=== PATIENT | female | born 2000 | race Caucasian/White ===

== ENCOUNTER 2024-12-05 15:20 | Outpatient (CLI) | payer OTHER, SELFPAY ==
--- NOTE | ~2024-12-05 | US_ITS ---
EXAMINATION: US OB <= 14 weeks fetus DATE: 12/05/2024 20:05 CDT INDICATION: Dating COMPARISON: 04/12/2024 TECHNIQUE: Real-time transabdominal obstetric ultrasound. FINDINGS: Last menstrual period is given as 09/19/2024 1 para 0 Estimated date of delivery by last menstrual period is 06/26/2025 The uterus measures 11.6 x 5.6 x 6.5 cm. A gestational sac is identified within the uterus. A pole is identified, with a crown-rump length that measures 3.7 cm, corresponding to an approx imate gestational age of 10 weeks and 4 days. cardiac activity is identified at a rate of 178 bpm. Despite prolonged interrogation, neither ovary was visualized Estimated date of delivery by ultrasound is 06/29/2025 IMPRESSION: Single intrauterine gestation with an approximate gestational age of 10 weeks and 4 days, with cardiac activity identified. Reviewed, dictated and finalized at location A. IMPRESSION: Single intrauterine gestation with an approximate gestational age of 10 weeks a nd 4 days, with cardiac activity identified.
== END 2024-12-05 15:21 | disposition home or self-care (01) ==
PROVIDERS: PCP Nurse Practitioner; Visit Provider Nurse Practitioner
DX: O36.80X0 Pregnancy with inconclusive fetal viability, not applicable or unspecified (principal); Z3A.00 Weeks of gestation of pregnancy not specified
CPT/HCPCS: 76801

== ENCOUNTER 2025-01-29 15:15 | Outpatient (CLI) | payer OTHER, SELFPAY ==
--- NOTE | ~2025-01-29 | US_ITS ---
EXAMINATION: US OB /maternal detail DATE: 01/29/2025 16:03 INDICATION: survey TECHNIQUE: Multiple obstetric sonographic images performed. FINDINGS: Comparison to ultrasound dated 12/05/2024 There is a single living fetus in vertex presentation. The placenta is anterior without placenta pre via. Placental margin to the cervix is 7.2 cm. Cervical length 3 cm. Amniotic fluid volume is subject ively normal. cardiac activity and movement is noted with a heart rate of 164 beats per minute. The following anatomy was identified as normal: 4 chamber heart 3 vessel cord cord insertion kidneys urinary bladder stomach spine diaphragm ventricles The cerebellum, nuchal fold and upper lip are not well visualized. Ventricular outflow tracts not vis ualized. Recommend follow-up survey for more complete assessment of these structures. The following biometric data were obtained: BPD: 40mm corresponds to gestational age 18 weeks 1 days. Head circumference: 152 mm corresponds to gestational age 18 weeks 2 days. Abdominal circumference: 128 mm corresponds to gestational age 18 weeks 3 days. Femur length: 25 mm corresponds to gestational age 17 weeks 4 days. Head circumference to abdominal circumference ratio: 1.19 (normal range for expected gestational age is 1.08-1.27). Estimated weight: 220 grams +/- 33 grams using Hadlock method, 22.4%. IMPRESSION: 1: Single living intrauterine with an estimated gestational age of 18weeks 3days by initial ultrasound measurements, with an EDC of 06/29/2025 in vertex presentation. 2. survey limited for evaluation of ventricular outflow tracts, cerebellum, cisterna magna, nu chal fold and upper lip. The remainder of the survey is unremarkable. Recommend follow-up survey for complete assessment of the above-mentioned structures. Reviewed, dictated and finalized at location A. IMPRESSION: 1: Single living intrauterine with an estimated gestational age of 18 weeks 3days by initial ultrasound measurements, with an EDC of 06/29/2025 in ve rtex presentation. 2. survey limited for evaluation of ventricular outflow tracts, cerebell um, cisterna magna, nuchal fold and upper lip. The remainder of the survey is u nremarkable. Recommend follow-up survey for complete assessment of the above-me ntioned structures.
== END 2025-01-29 15:16 | disposition home or self-care (01) ==
PROVIDERS: PCP Obstetrics & Gynecology Gynecology; Visit Provider Obstetrics & Gynecology Gynecology
DX: Z36.9 Encounter for antenatal screening, unspecified (principal); Z3A.18 18 weeks gestation of pregnancy
CPT/HCPCS: 76805

== ENCOUNTER 2025-02-26 12:40 | Outpatient (CLI) | payer OTHER, SELFPAY ==
--- NOTE | ~2025-02-26 | US_ITS ---
EXAMINATION: US OB follow up DATE: 02/26/2025 16:25 CDT INDICATION: Follow-up anatomy scan TECHNIQUE: Real-time transabdominal obstetric ultrasound. COMPARISON: 01/29/2025 FINDINGS: There is a single intrauterine gestation in vertex presentation. The placenta is anterior. No images of the cervix were submitted. cardiac activity and movement is noted with a heart rate of 155 beats per minute. Anatomic parameters are as follows choroid plexi are visualized, and unremarkable. Lateral ventricles are visualized and are unremarkable. The falx is visualized. The cerebellum is visualized measuring 22.3 mm, and is sonographically unremarkable. The cisterna magna measures 3.5 mm in anterior to posterior dimension (normal measurement is 2 to 10 mm). The nuchal fold measures 4.6 mm (greater than 6 mm is considered abnormal). Cine of the four-chamber heart is visualized and is anatomic. Both the right and left ventricular outflow tracts are identified on cine view and are unremarkable. The upper lip and nose are continuous on the submitted cine images. IMPRESSION: Single intrauterine gestation with an approximate gestational age of 22weeks and 3 days. Remainder of the requested anatomy scan was performed and is within normal limits. Reviewed, dictated and finalized at location A. IMPRESSION: Single intrauterine gestation with an approximate gestational age of 22weeks an d 3 days. Remainder of the requested anatomy scan was performed and is within normal limi ts.
== END 2025-02-26 12:41 | disposition home or self-care (01) ==
LOC: MICIMG 12:43
PROVIDERS: PCP Obstetrics & Gynecology Gynecology; Visit Provider Obstetrics & Gynecology Gynecology
DX: Z36.2 Encounter for other antenatal screening follow-up (principal)
CPT/HCPCS: 76816

== ENCOUNTER 2025-03-02 16:32 | Emergency (ER) | payer OTHER, SELFPAY ==
--- NOTE | 2025-03-02 16:40 | ED.FEMALEGU ---
HPI - Female Genitourinary General Chief complaint: Urogenital-Female Stated complaint: Urinary Irritation Time Seen by Provider: 03/02/25 16:48 Source: patient and RN notes reviewed Mode of arrival: ambulatory Limitations: no limitations History of Present Illness HPI Narrative: 25-year-old female who is , due in June, presents with concern with concern for urine frequency, urgency, low back pain, dysuria. Reports symptoms started 1-2 days ago. She denies fever, body aches, chills, sweats, nausea, vomiting. Reports she had a UTI beginning of her as well. MD elicited complaint: UTI Related Data Home Medications ?Medication ?Instructions ?Recorded ?Confirmed ?Last Taken ?Type [id number] 3 fatty no.1 PO 03/02/25 Unknown History ergocalciferol (vitamin D2) 1,250 03/02/25 Unknown History mcg (50,000 unit) capsule Allergies Allergy/AdvReac Type Severity Reaction Status Date / Time No Known Allergies Allergy Verified 03/02/25 16:42 Review of Systems Review of Systems: CONSTITUTIONAL: Denies malaise, chills, sweats, or fever. CARDIOVASCULAR: Denies chest pain, palpitations, or edema. RESPIRATORY: Denies cough or dyspnea. GASTROINTESTINAL: Denies abdominal pain, nausea, vomiting, diarrhea GENITOURINARY: Reports dysuria, frequency, urgency. Denies flank pain or hematuria. SKIN: Denies rash or itching. MUSCULOSKELETAL: Reports left back pain. Denies myalgia. All systems reviewed & are unremarkable except as noted in HPI and below PMFSH Comments At time of signature, agree with nursing past medical, surgical, social and family history. There is no relevant family history pertinent to the presenting complaint Exam Narrative: GENERAL: Well-appearing, well-nourished, and in no acute distress. HEAD: Normocephalic. EYES: PERRLA, conjunctivae clear. NECK: Supple. No lymphadenopathy CHEST: Clear to auscultation. No respiratory distress. HEART: Regular rate and rhythm. ABDOMEN: No CVA tenderness SKIN: Warm, dry, no rash. NEURO: Alert and oriented x3. PSYCH: Normal mood and affect Course Course Emergency Course: Patient is aware of diagnosis, understands and agrees to treatment plan. Anticipatory guidance given. Patient agrees to follow-up as directed and is aware of reasons to seek care at the emergency department. Portions of this record may have been created with voice recognition software Level of Care: Express Care Visit Vital Signs Vital signs: Reviewed. MDM - Female Genitourinary MDM Narrative Medical decision making narrative: Exam findings and UA show no acute concerns or changes; patient is non-toxic appearing and is in no distress. Patient is appropriate for outpatient treatment and follow-up. Differential Diagnosis Differential diagnosis: Likely urinary tract infection and cystitis Critical Care Time Critical Care Time Critical Care Time: No Discharge Plan Discharge Clinical Impression: Urinary tract infection Patient Disposition: Home Condition: Stable Instructions: Antibiotic Form, Urinary Tract Infection in (ED) Additional Instructions: We will send a urine culture to the lab; if the culture identifies an organism that the prescribed antibiotic will not treat, you will receive a phone call from an urgent care staff member and an appropriate antibiotic will be prescribed. -Your symptoms should begin to improve within a day of starting antibiotics. But you should finish all the antibiotic pills you get. Otherwise your infection might come back. -Also recommend: increase water intake. Tylenol as needed for pain or fever -Follow-up with your primary care provider for urine recheck or seek ER visit if condition worsens with high fever, nausea, vomiting and severe back pain. Patient Language: Bangladeshi Prescriptions: New cephalexin 500 mg capsule 500 mg PO BID 7 Days Qty: 14 0RF No Action ergocalciferol (vitamin D2) 1,250 mcg (50,000 unit) capsule [id number] 3 fatty no.1 [Pre-Diana Multivitamins/Minerals] PO Follow-up/Referrals: Jamaica Scott MD [Primary Care Provider, PLASTICS SEASONER OPERATOR] Time of Disposition: 16:56
[2025-03-02 16:44] VITALS: BP 125/72; PULSE 93; RESP 18; TEMP 36.4; O2SAT 100
[2025-03-02 16:52] LABS: EDUAAPPEAR Clear; EDUABILI Negative (Negative); EDUABLOOD Trace (Negative); EDUACOLOR1 Yellow; EDUAGLUCOSE Negative (Negative); EDUAKETONE Negative (Negative); EDUALEUKO 1+ (Negative); EDUANITRATE Negative (Negative); EDUAPH 6.0; EDUAPROTEIN Trace (Negative); EDUASPGRAVITY 1.025; EDUAUROBILI 1.0
== END 2025-03-02 16:58 | disposition home or self-care (01) ==
PROVIDERS: Emergency Provider Nurse Practitioner; PCP Obstetrics & Gynecology Gynecology
DX: N39.0 Urinary tract infection, site not specified (principal)
CPT/HCPCS: 81003; 87086; 99203; G0463

== ENCOUNTER 2025-05-28 10:02 | Outpatient (RCR) | payer OTHER, SELFPAY ==
--- NOTE | 2025-05-28 10:35 | PC.NURSE ---
on the unit. Reviewed tracing and BP reported. Order received for PIH workup.
[2025-05-28 10:52] LABS: Hematocrit 39.8 % (37.0-47.0); Hemoglobin 13.0 g/dL (12.0-15.0); Immature Granulocyte Percent A 0.5 % (0-0.5); Lymphocytes Absolute Auto 1.50 K/mm3 (0.9-3.2); Mean Corpuscular HGB Conc 32.7 g/dl (32-36); Mean Corpuscular Hemoglobin 28.8 pg (26-34); Mean Corpuscular Volume 88.1 fl (80-100); Nucleated Red Blood Cells Absolute Auto 0.000 K/mm3 (0.0-0.012); Nucleated Red Blood Cells Perc 0.0 % (0.0-0.2); Platelet Count Result 197 k/mm3 (150-375); Red Blood Count 4.52 M/mm3 (4.2-5.4); White Blood Count 11.7 K/mm3 (4.5-10.0)
[2025-05-28 11:11] LABS: Alanine Aminotransferase 16 U/L (6-35); Albumin Level 3.5 g/dL (3.5-5.1); Alkaline Phosphatase 186 U/L (38-126); Anion Gap 7 mmol/L (4-12); Aspartate Amino Transferase 19 U/L (14-36); Bilirubin,Total 0.3 mg/dL (0.2-1.3); Blood Urea Nitrogen 4 mg/dL (7-17); Calcium 8.8 mg/dL (8.4-10.2); Carbon Dioxide 21 mmol/L (22-30); Chloride 106 mmol/L (98-107); Estimated Glomerular Filt Rate > 60; Glucose 111 mg/dL (65-110); Potassium 3.8 mmol/L (3.4-5.0); Sodium 134 mmol/L (137-145); Total Protein 6.7 g/dL (6.3-8.2); Uric Acid 4.0 mg/dL (2.5-7.5)
[2025-05-28 11:27] LABS: Total Protein Urine Random 13 mg/dL; Ur Ttl Prot Creatinine Ratio 0.28 mg/mg (0-0.20)
[2025-05-28 11:31] LABS: Add Urine Microscopic? YES; Appearance Urine Clear (Clear); Glucose Urine UA Negative (Negative); Leukocyte Esterase Ur 2+ LEU/UL (Negative); Need Manual Microscopic Reviewed; Nitrate Urine Negative (Negative); Non Pathogenic Casts 0-2; Specific Grav Ur 1.010 (1.001-1.035)
[2025-05-28 11:47] VITALS: BP 142/97
== END 2025-06-30 11:41 | disposition other institution (70) ==
LOC: ANHOBOP 10:02
PROVIDERS: Visit Provider Obstetrics & Gynecology Gynecology
DX: O36.8330 Maternal care for abnormalities of the fetal heart rate or rhythm, third trimester, not applicable or unspecified (principal); Z3A.38 38 weeks gestation of pregnancy
CPT/HCPCS: 36415; 59025; 80053; 81001; 82570; 84156; 84550; 85025; 87086

== ENCOUNTER 2025-05-31 18:55 | Outpatient (CLI) | payer OTHER, SELFPAY ==
[2025-05-31] VITALS (9 sets, daily range): BP systolic 121–132; BP diastolic 76–87; PULSE 99–113; O2SAT 97–100
== END 2025-05-31 19:54 | disposition home or self-care (01) ==
LOC: ANHOBOP 19:00 → ANHLDR 06-05 13:09
PROVIDERS: Visit Provider Obstetrics & Gynecology Gynecology
DX: O41.8X90 Other specified disorders of amniotic fluid and membranes, unspecified trimester, not applicable or unspecified (principal); Z3A.00 Weeks of gestation of pregnancy not specified
CPT/HCPCS: 59025; 84112; 99199

== ENCOUNTER 2025-06-10 20:44 | Outpatient (CLI) | payer OTHER, SELFPAY ==
[2025-06-10 20:58] VITALS: BP 140/94; PULSE 92
[2025-06-10 21:15] VITALS: BP 140/101; PULSE 92
[2025-06-10 21:31] VITALS: BP 137/81; PULSE 90
== END 2025-06-10 21:38 | disposition home or self-care (01) ==
LOC: ANHOBOP 20:48 → ANHOBPP 20:49
PROVIDERS: Visit Provider Obstetrics & Gynecology Gynecology
DX: O36.8190 Decreased fetal movements, unspecified trimester, not applicable or unspecified (principal)
CPT/HCPCS: 99199

== ENCOUNTER 2025-06-11 12:31 | Observation (INO) | payer OTHER, SELFPAY ==
--- NOTE | 2025-06-11 12:45 | OBADM ---
This patient, Dayo White, admitted to the OB room Labor/Delivery/Recovery 107 for observation. Patient/family oriented to hospital policies and general routines including ID bracelet, bed and alarms, visiting hours, pain management, procedures, bathroom and other care routines, personal items, smoking policy, room service/diet, and visiting hours. Patient/Family are encouraged to report perceived risks to care and to ask questions if they do not understand what they are told or what they should do.
--- NOTE | 2025-06-25 08:02 | PM.OBTRLD ---
OB - Triage/Final Diagnosis Visit Information Reason for evaluation: threatened labor Comments/Additional reasons for admission: I have assessed the risk for this patient, Dayo White, and determined that she would benefit from observation care.
== END 2025-06-11 17:00 | disposition home or self-care (01) ==
PROVIDERS: Admitting Provider Obstetrics & Gynecology Gynecology; Visit Provider Obstetrics & Gynecology Gynecology
DX: O47.1 False labor at or after 37 completed weeks of gestation (principal); Z3A.37 37 weeks gestation of pregnancy
CPT/HCPCS: G0378; G0379

== ENCOUNTER 2025-06-13 03:27 | Inpatient (IN) | payer OTHER, SELFPAY ==
[2025-06-13] VITALS (43 sets, daily range): BP systolic 118–141; BP diastolic 59–93; PULSE 89–136; RESP 16; TEMP 36.6–37.2; O2SAT 86–100; BMI 34.7
[2025-06-13] MEDS: LACTATED RINGERS 1,000 ML 125 ML IV CONT (03:47)
[2025-06-13 04:05] LABS: Hematocrit 41.5 % (37.0-47.0); Hemoglobin 13.8 g/dL (12.0-15.0); Immature Granulocyte Percent A 1.1 % (0-0.5); Lymphocytes Absolute Auto 2.54 K/mm3 (0.9-3.2); Mean Corpuscular HGB Conc 33.3 g/dl (32-36); Mean Corpuscular Hemoglobin 29.1 pg (26-34); Mean Corpuscular Volume 87.4 fl (80-100); Nucleated Red Blood Cells Absolute Auto 0.000 K/mm3 (0.0-0.012); Nucleated Red Blood Cells Perc 0.0 % (0.0-0.2); Platelet Count Result 308 k/mm3 (150-375); Red Blood Count 4.75 M/mm3 (4.2-5.4); White Blood Count 21.5 K/mm3 (4.5-10.0)
[2025-06-13] MEDS: OXYTOCIN 30 UNITS/NS 500 ML 30 UNITS/500 ML BAG 999 UNITS IV CONT (04:21)
--- NOTE | 2025-06-13 04:31 | WPDOBADMIT ---
Obstetrics - Admit Note Admission Note: record reviewed. No pertinent additions to the history and/or any subsequent changes in the physical findings that are not consistent with the expected course of the were found. Additions to the history and/or subsequent changes in the physical findings follow. None.
--- NOTE | 2025-06-13 04:31 | PM.OBPRVD ---
OB - Vaginal Delivery Note Procedure Delivery date: 06/13/25 Induction method: None Delivery monitor: External FHT and External Uterine Route of delivery: Episiotomy description: None Laceration Description: Perineal - 2nd Degree Delivery repair: vicryl (3-0) Specimen: No Quantitative Blood Loss (ml): 150 Anesthesia type: Local Disposition: Floor Complications: No immediate complications Baby Date of : 06/13/25 Gestational Age by Date: 38 gender: Female Weight (pounds): 6 Weight (ounces): 9 presentation: vertex position: Right Occiput Anterior Placenta delivery description: Spontaneous Cord Vessel Description: 3 Vessels and Nuchal Cord score one minute: 8 score five minutes: 9
--- NOTE | 2025-06-13 04:33 | PM.OBDSVD ---
DS: Admitting Diagnosis Discharge Date 06/15/25 Admitting Diagnosis labor at 38 weeks DS: Discharge Diagnosis Discharge Diagnosis (1) (normal spontaneous vaginal delivery): Code(s): O80 - Encounter for full-term uncomplicated delivery Status: Acute OB - DS: Summary OB Procedures : Ultrasound OB Procedures Intrapartum: Spontaneous Vag Delivery OB Procedures: : None Peripartum Data Infant Delivery Method: Natural Vaginal Laceration Description: Perineal - 2nd Degree Episiotomy description: None complications: none Status at Discharge Functional status at discharge: independent ambulation Overall status at discharge: patient is progressing back to baseline Time Spent with Patient Time attestation: Total time spent providing and/or coordinating discharge services: DS: Data Data Completed and Pending Labs on day of discharge: Labs from last 24 hours 06/13/25 04:00 WBC Pending RBC Pending Hgb Pending Hct Pending MCV Pending MCH Pending MCHC Pending RDW Pending Plt Count Pending MPV Pending Immature Gran % (Auto) Pending Neut % (Auto) Pending Lymph % (Auto) Pending [place] % (Auto) Pending Eos % (Auto) Pending Baso % (Auto) Pending Lymph # (Auto) Pending [place] # (Auto) Pending Eos # (Auto) Pending Baso # (Auto) Pending Abs Immat Gran (auto) Pending Absolute Neuts (auto) Pending Absolute Nucleated RBC Pending Nucleated RBC % Pending Blood Type Pending Antibody Screen Pending Discharge Plan Discharge Attending physician on discharge: Jamaica Scott Discharging Clinician: Jamaica Scott Anticipated Discharge Date/Time: 06/15/25 04:33 Patient Disposition: Home Activity: may shower and pelvic rest Diet: regular Patient Instructions: Antibiotic Form Patient Language: Russian Stand Alone Forms: General Discharge Information Follow-up/Referrals: Jamaica Scott MD [Physician, VICE PRESIDENT OF CONSULTING SERVICES] - 6 Weeks Discharge Medications: Continued ergocalciferol (vitamin D2) 1,250 mcg (50,000 unit) capsule 1,250 mcg PO WEEKLY Rx Instructions: typically takes on Fridays [id number] 3 fatty no.1 [Pre-Diana Multivitamins/Minerals] 1 cap PO DAILY Date of admission: 06/13/25 03:27 Primary Care Provider: PHYSICIAN,ELASTIC CUTTER Admitting Provider: Jamaica Scott Attending physician on admission: Jamaica Scott Condition: Stable
[2025-06-13 04:48] LABS: Syphilis IgG/IgM Antibody Non-Reactive (Nonreactive)
[2025-06-13] MEDS: OXYTOCIN 30 UNITS/NS 500 ML 30 UNITS/500 ML BAG 125 UNITS IV CONT (04:51)
[2025-06-13] MEDS: IBUPROFEN 600 MG TABLET PO ×2 (05:51→13:20)
[2025-06-13] MEDS: BENZOCAINE 20% AER SPR (*SP) 56 GM CAN 1 SPRAY TOPICAL (07:08)
[2025-06-13] MEDS: WITCH HAZEL 40 PADS 1 PAD TOPICAL (07:08)
--- NOTE | 2025-06-13 07:18 | OBPPTRN ---
Patient transferred to post room #286 via wheelchair. Support person present. Oriented to unit, room, information board, rooming in, admission packet and security measures. Patient verbalizes understanding.
--- NOTE | 2025-06-13 16:12 | PC.NURSE ---
0740 Consulted with patient to assess needs related to . Discussed with mother her successes, concerns and any questions she has. Per mother infant latched earlier this morning using the nipple shield on her left breast, that nipple is slightly flat, her right nipple is able to mary ellen with stimulation, will try and see if will latch without the shield. We reviewed working with the , supporting breast, protecting her nipples with an optimal deep latch, good positioning, and good hand washing. Encouraged understanding the benefits of skin to skin, responding to feeding cues, frequencies of feeding 8-12 times in 24 hours (approximately 2-3 hours), duration of feedings, milk production, intake/output feeding sheet and signs of adequate intake encouraging swallowing at the breast. Reviewed positioning and alignment, supporting breast, off-centered (asymmetrical latch) and leading with the chin with big, open, wide gape. Infant latched optimally to the [right] breast in [football] position without using the nipple shield. Education given to the mother of how to visualize the suckling (with good rocking jaw motion) swallows (dropping of the lower jaw) and how to listen for drinking at the breast (the ka sound). The was [able] to maintain latch without discomfort to mother for 10 minutes. Nipple care reviewed with optimal latch, good positioning and using clean hands when touching her breast. Resources used to facilitate learning were used from the [visual handouts/ tool/mom and baby guide]. Mother voiced understanding of the education shared, to call for assistance if the infant does not latch or if there is discomfort with . Reported to the Primary RN. 0923 Mother called out for assistance with positioning and latch. Infant was able to latch optimally to the [left] breast in [football] position using the nipple shield. Education given to the mother again of how to visualize the suckling (with good rocking jaw motion) swallows (dropping of the lower jaw) and how to listen for drinking at the breast (the ka sound). The infant was [able] to maintain latch without discomfort to mother. As for the nipple shield, we reviewed good handwashing, cleaning the nipple shield and the appropriate way to apply and use as a tool. Discussed with mom the nipple shield precautions, possible complications associated with the risks and benefits. Reviewed practicing with a nipple shield, then without and how to protect the milk supply and production. Mom and baby guide referred to as a resource for outpatient services, community resources and when to call a provider. Mom voiced understanding of the importance of hand expression, nipple stimulation and initiating a pumping schedule if infant continues to nurse with the shield. Reported to the Primary RN. [id number] Mother called out for assistance with positioning and latch. was able to latch optimally to the [right] breast in [football] position using the nipple shield. Education given to the mother again of how to visualize the suckling (with good rocking jaw motion) swallows (dropping of the lower jaw) and how to listen for drinking at the breast (the ka sound). The was [able] to maintain latch without discomfort to mother. Discussed now initiating a pumping schedule since the infant has continued to nurse with the nipple shield. Mother would like to use the hospital breast pump as her pump is at home. Mother is going to call out to have breast pump set up after is done feeding. 1600 Breast pump provided due to nipple shield use. Instructions given on cleaning, care, usage, that there should be no pain, pumping schedule for milk production, collection, and storage of human milk. Patient was assessed for correct placement, flange size, to pump for comfort and nipple stretching/stimulation for adequate milk production every 3 hours (8 times in 24 hours) 1-2 times at night. Parents are encouraged to record the pumping schedule on the feeding sheet.?Mother voiced understanding of the education shared along with mom/baby guide and the pump measurement, flange fit handout for additional resource information. Reported to the Primary RN.
[2025-06-13] MEDS: ACETAMINOPHEN 325 MG TABLET 650 MG PO (21:40)
[2025-06-14 04:58] LABS: Hematocrit 34.3 % (37.0-47.0); Hemoglobin 11.4 g/dL (12.0-15.0)
[2025-06-14 04:59] VITALS: BP 113/71; PULSE 85; RESP 16; TEMP 36.7; O2SAT 97
[2025-06-14 05:00] VITALS: PULSE 85; RESP 16; O2SAT 97
[2025-06-14 07:25] VITALS: BP 119/87; PULSE 86; RESP 16; TEMP 36.9; O2SAT 98
--- NOTE | 2025-06-14 07:48 | P.PNOB_ITS ---
OB - PN: Subj Subjective Date/time seen: 06/14/25 07:48 Patient comments: no complaints and pain well controlled baby status: doing well OB - PN: Obj Data Labs 06/14/25 04:24 Labs: Laboratory Results - last 24 hr 06/14/25 04:24 Hgb 11.4 L Hct 34.3 L OB - PN A/P Plan day: 1 Plan: routine care Time Spent With Patient Time: Total time spent is greater than 50% in coordination of care (as documented) at patient's floor/unit and/or counseling patient: Exam 2 : Bimanual exam- vagina & uterus: other (Uterus firm, nt @U)
[2025-06-14] MEDS: MULTIVIT/MIN/PREN/FOL AC/IRON TABLET 1 TAB PO (08:47)
[2025-06-14] MEDS: IBUPROFEN 600 MG TABLET PO ×2 (08:47→22:02)
[2025-06-14] MEDS: DOCUSATE SODIUM 100 MG CAPSULE PO ×2 (08:47→16:32)
--- NOTE | 2025-06-14 13:35 | PC.NURSE ---
[id number] CLC RN called to room to assist with feeding, infant was sleepy and had not had a feeding in almost 6 hours. We reviewed working with the and using the nipple shield, supporting her breast, good positioning, and good hand washing. Reviewed positioning and alignment, supporting breast, off-centered (asymmetrical latch) and leading with the chin with big, open, wide gape. Infant latched to the [right] breast in [football] position. Education given to the mother of how to visualize the suckling (with good rocking jaw motion) swallows (dropping of the lower jaw) and how to listen for drinking at the breast (the ka sound). The infant was [able] to maintain latch without discomfort to mother but only for a few sucks, not consistent. CLC RN to check infant's blood sugar since she had gone the 6 hours now without an adequate feeding. Reported to the Primary RN. 0840 CLC in room with mother, 's blood sugar level was 65, mother to keep skin to skin, watch for to show feeding cues. Mother is encouraged to call for assistance if her doesn?t latch with the next feeding, pain with latching, questions or concerns. We did discuss starting the 15-15-15 feeding plan if infant continued to not have an effective feed, CLC and Primary RN to check in with mother. Mother voiced understanding of information shared along with the mom/baby guide for an additional resource. Reported to the Primary RN. 1130 CLC to room to check on mother and see if infant has breastfed again. was latched optimally to the [left] breast in [football] position. Education given to the mother of how to visualize the suckling (with good rocking jaw motion) swallows (dropping of the lower jaw) and how to listen for drinking at the breast (the ka sound). The was [able] to maintain latch without discomfort to mother. Nipple care reviewed with optimal latch, good positioning and using clean hands when touching her breast. Resources used to facilitate learning were used from the [visual handouts/ tool/mom and baby guide]. Mother voiced understanding of the education shared, to call for assistance if the infant does not latch or if there is discomfort with . Reported to the Primary RN.
[2025-06-14] MEDS: WITCH HAZEL 40 PADS 1 PAD TOPICAL (15:00)
[2025-06-14] MEDS: ACETAMINOPHEN 325 MG TABLET 650 MG PO (15:00)
[2025-06-14] MEDS: LANOLIN (LANSINOH) 7.5 GM CREAM 1 APPLIC TOPICAL (15:01)
[2025-06-14 19:50] VITALS: BP 121/80; PULSE 93; RESP 16; TEMP 36.7; O2SAT 95
[2025-06-15 07:35] VITALS: BP 123/90; PULSE 96; RESP 16; TEMP 36.8; O2SAT 99
[2025-06-15] MEDS: IBUPROFEN 600 MG TABLET PO (07:58)
[2025-06-15] MEDS: MEASLES,MUMPS,RUBELLA VACCINE 0.5 ML VIAL SUB-Q (07:58)
[2025-06-15] MEDS: MULTIVIT/MIN/PREN/FOL AC/IRON TABLET 1 TAB PO (07:58)
[2025-06-15] MEDS: DOCUSATE SODIUM 100 MG CAPSULE PO (07:58)
--- NOTE | 2025-06-15 10:16 | PC.NURSE ---
Consulted with mother concerning needs and she shared her ability to independently latch infant optimally without pain using the nipple shield, she is also using her breast pump and supplementing. We discussed weaning from the nipple shield, see feeding plan for instructions. Mother is feeding appropriately for growth of infant and understands stimulating to eat if needed. has had appropriate feedings in the last 24 hours meets the outcomes for weight, output, blood sugar and jaundice at this time. Reinforced understanding of milk production, transition of milk, signs of adequate intake, transition of stool, prevention/relief of engorgement, plugged ducts, mastitis, responsive watching for feeding cues, the different methods of stimulating to breastfeed 1-3 hours after the start of the last feeding, community resources, and when to call a provider using the resource of the feeding sheet along with the mom and baby guide. Mother voiced understanding of the information shared, is confident to continue effectively her at home, when to call for assistance, denies any additional assistance or education at this time. Reported to the Primary RN.
--- NOTE | 2025-06-15 11:19 | P.PNOB_ITS ---
OB - PN: Subj Subjective Date/time seen: 06/15/25 11:19 Patient comments: no complaints and pain well controlled baby status: doing well OB - PN: Obj Data Labs 06/14/25 04:24 OB - PN A/P Plan day: 2 Plan: routine care, discharge home and follow up 6 weeks Time Spent With Patient Time: Total time spent is greater than 50% in coordination of care (as documented) at patient's floor/unit and/or counseling patient: Exam 2 : Bimanual exam- vagina & uterus: other (Uterus firm, nt @U)
[2025-06-16 10:59] VITALS: BP 126/72; PULSE 85; RESP 18; TEMP 36.6; O2SAT 98
== END 2025-06-15 13:05 | disposition home or self-care (01) | DRG 807 ==
LOC: ANHLDR 04:34 → ANHOB2 07:30
PROVIDERS: Admitting Provider Obstetrics & Gynecology Gynecology; Visit Provider Obstetrics & Gynecology Gynecology
DX: O62.3 Precipitate labor (principal); Z37.0 Single live birth; Z3A.38 38 weeks gestation of pregnancy; O69.81X0 Labor and delivery complicated by cord around neck, without compression, not applicable or unspecified; O70.1 Second degree perineal laceration during delivery; Z23 Encounter for immunization
CPT/HCPCS: 36415; 85014; 85018; 85025; 86593; 86850; 86900; 86901; 90710; A9270; J2590; J2795; J7120